=== PATIENT | female | born 1995 | race Caucasian/White ===

== ENCOUNTER 2017-07-16 11:45 | Emergency (ER) ==
[2017-07-16 11:52] VITALS: BP 131/85; TEMP 98.6; BMI 37.9
--- NOTE | 2017-07-16 12:38 | ED.PDOC ---
General ED Provider: Dr. STARLA SOLIS Chief Complaint: Syncope Stated Complaint: Passed out this morning. Was doing dishes in the kitchen and then she found her self on the floor when she suddenly awakened. States her brother was present and she recognized and spoke to him Time Seen by Physician: 12:40 Mode of Arrival: Walk-In Information Source: Patient Nursing and Triage Documentation Reviewed and Agree: Yes Reviewed sepsis parameters & appropriate labs ordered?: Yes System Inflammatory Response Syndrome: Not Applicable Sepsis Protocol: For patient's 13 years and over: Temp is 96.8 and below OR 101 and greater Pulse >90 BPM Resp >20/minute Acutely Altered Mental Status Are patient's symptoms suggestive of a new infection, such as: -Pneumonia -Skin, Soft Tissue -Endocarditis -UTI -Bone, Joint Infection -Implantable Device -Acute Abdominal Infection -Wound Infection -Meningitis -Blood Stream Catheter Infection -Unknown System Inflammatory Response Syndrome: Not Applicable Neurological Complaint Exam - Syncope/Near Syncope Complaint/Exam Onset/Duration: This AM Symptoms Are: Resolved Episodes Lasting: Minutes (Unsure of exact time) Episodes Witnessed: No Loss of Consciousness: Yes (suspected. NO Sensation of dizziness of impending syncope) Associated Head Trauma: No Activity at Onset: With exertion Aggravating: None Alleviating: Reports: Spontaneous resolution Associated Signs and Symptoms: Reports: Lightheadedness. Denies: Pain, Vomiting , Diarrhea, Short of air, Chest pain, Palpitations, Diaphoresis, Dizziness, Weakness, AMS, Numbness, Headache, Seizure, Remote head trauma, Recent head trauma Related History: Similar episode (Remote past) Cardiac Risk Factors: Reports: None GI Bleed Risk Factors: Reports: None Dysrhythmia Risk Factors: Reports: None Related Surgical History: Reports: None JVD Present: No Carotid Bruit Present: No Rectal Heme Positive: No Nystagmus Present: No Gag Reflex Present: Yes Meningeal Signs Positive: No Focal Weakness: Present: None Focal Sensory Loss: Present: None Gait: Normal [id number]: Normal Findings Romberg Test Positive: No Babinski Sign: Negative Right, Negative Left Heel to Toe Normal: Yes Derrick-Hallpike Test Positive: No Differential Diagnoses: Dysrhythmia, Hypoglycemia, Vasovagal Episode, Other (R/ O ) Review of Systems - Review Of Systems Constitutional: Reports: No symptoms. Denies: Chills, Fever Eyes: Reports: No symptoms. Denies: Blindness, Blurred vision, Vision change Ears, Nose, Mouth, Throat: Reports: No symptoms Respiratory: Denies: Cough, Short of air Cardiac: Reports: Syncope GI: Denies: No symptoms, Abdomen distended, Abdominal pain : Denies: Burning, Dysuria Musculoskeletal: Denies: Back pain, Gout, Joint pain, Joint swelling, Muscle pain Skin: Reports: No symptoms Neurological: Reports: Anxiety, Depressed, Emotional problems Endocrine: Denies: Excessive sweating, Flushing, Intolerance to cold Hematologic/Lymphatic: Denies: Anemia, Blood clots, Easy bleeding, Swollen glands All Other Systems: Reviewed and Negative Past Medical History - Past Medical History Previously Healthy: No Endocrine: Reports: None Cardiovascular: Reports: None Respiratory: Reports: None Hematological: Reports: None Gastrointestinal: Reports: None Genitourinary: Reports: None Neuro/Psych: Reports: Migraine, Seizure, Anxiety, Depression, Bipolar Disorder Musculoskeletal: Reports: None Cancer: Reports: None Last Menstrual Period: jun 14, 2017 Other Pertinent Past Medical History: colonoscopy - Surgical History General Surgical History: Reports: Other (colonoscopy) - Family History Family History: Reports: Unknown - Social History Smoking Status: Never smoker Hx Substance Use: No Alcohol Screening: None Lives: With family Physical Exam - Physical Exam Appearance: Well-appearing, Obese Ill-appearing: None Pain Distress: None Eyes: LY, EOMI, Conjunctiva clear ENT: Ears normal, Nose normal, Oropharynx normal Neck: Supple Respiratory: Airway patent, Breath sounds clear, Breath sounds equal Cardiovascular: RRR, Pulses normal, No rub, No murmur GI/: Soft, Nontender, No masses, Bowel sounds normal, No Organomegaly Musculoskeletal: Normal strength, ROM intact, No edema, No calf tenderness Skin: Warm, Dry, Normal color Neurological: Sensation intact, Motor intact, Reflexes intact, Cranial nerves intact, Alert, Oriented Psychiatric: Affect appropriate, Mood appropriate, Anxious Re-Evaluation - Re-Evaluation Time of Re-Evaluation: 14:20 Status: Unchanged Vital Signs Stable: Yes Appearance: NAD Lungs: Clear Skin: Warm and Dry Neuro: Alert and Oriented X3 CV: RRR Critical Care Note - Critical Care Note Total Time (mins): 0 Course - Course Hematology/Chemistry: 07/16/17 13:35 07/16/17 13:35 Orders, Labs, Meds: Lab Review 07/16/17 07/16/17 07/16/17 12:00 12:00 13:35 WBC 11.52 H RBC 4.93 Hgb 13.4 Hct 40.6 MCV 82.4 MCH 27.2 MCHC 33.0 RDW Coeff of Martin 15.5 H Plt Count 386 Immature Gran % (Auto) 0.4 Neut % (Auto) 62.9 Lymph % (Auto) 23.2 [place] % (Auto) 8.2 Eos % (Auto) 4.3 Baso % (Auto) 1.0 Immature Gran # (Auto) 0.1 Neut # 7.2 H Lymph # 2.7 [place] # 0.9 Eos # 0.5 Baso # 0.1 Sodium Potassium Chloride Carbon Dioxide Anion Gap BUN Creatinine Estimated GFR (MDRD) BUN/Creatinine Ratio Glucose Calcium Total Bilirubin AST ALT Alkaline Phosphatase Total Protein Albumin Globulin Albumin/Globulin Ratio Urine Color Yellow Urine Clarity Clear Urine pH 7.0 Ur Specific [place] 1.020 Urine Protein Negative Urine Glucose (UA) Negative Urine Ketones Negative Urine Blood Negative Urine Nitrite Negative Urine Bilirubin Negative Urine Urobilinogen 0.2 Ur Leukocyte Esterase Negative Urine Test Negative 07/16/17 13:35 WBC RBC Hgb Hct MCV MCH MCHC RDW Coeff of [place] Plt Count Immature Gran % (Auto) Neut % (Auto) Lymph % (Auto) [place] % (Auto) Eos % (Auto) Baso % (Auto) Immature Gran # (Auto) Neut # Lymph # [place] # Eos # Baso # Sodium 137 Potassium 3.9 Chloride 104 Carbon Dioxide 26 Anion Gap 10.9 BUN 12 Creatinine 0.74 Estimated GFR (MDRD) 98.00 BUN/Creatinine Ratio 16.21 Glucose 85 Calcium 9.7 Total Bilirubin 0.3 AST 17 ALT 23 Alkaline Phosphatase 63 Total Protein 7.2 Albumin 3.7 Globulin 3.5 Albumin/Globulin Ratio 1.06 Urine Color Urine Clarity Urine pH Ur Specific [place] Urine Protein Urine Glucose (UA) Urine Ketones Urine Blood Urine Nitrite Urine Bilirubin Urine Urobilinogen Ur Leukocyte Esterase Urine Test Orders Category Date Time Status EKG-(ED ONLY) Stat CARDIO 07/16/17 12:55 Completed CBC W/ AUTO DIFF Stat LAB 07/16/17 13:35 Completed CMP [COMPREHENSIVE METABOLIC PANEL] Stat LAB 07/16/17 13:35 Completed URINALYSIS C & S IF INDICATED Stat LAB 07/16/17 12:00 Completed URINE Stat LAB 07/16/17 12:[address] HEAD W/O CONTRAST Stat RADS 07/16/17 12:55 Completed Vital Signs: Temp Pulse Resp BP Pulse Ox 07/16/17 11:45 98.6 F 102 H 20 131/85 98 Departure - Departure Time of Disposition: 14:30 Disposition: HOME SELF-CARE Discharge Problem: Vaso vagal episode Instructions: Syncope (ED) Condition: Good Pt referred to PMD for follow-up: Yes (7-10 days) Allergies/Adverse Reactions: Allergies amitriptyline [From Elavil] Adverse Reaction (Verified 07/16/17 11:57) Bleach (Sodium Hypochlorite) Adverse Reaction (Verified 07/16/17 11:57) caffeine [From Excedrin Menstrual Complete] Adverse Reaction (Verified 07/16/17 11:57) escitalopram oxalate [From Lexapro] Adverse Reaction (Verified 07/16/17 11:57) nortriptyline Adverse Reaction (Verified 07/16/17 11:57) peppermint Adverse Reaction (Verified 07/16/17 11:57) phenylephrine [From Excedrin Sinus Headache] Adverse Reaction (Verified 11:57) sertraline HCl [From Zoloft] Adverse Reaction (Verified 07/16/17 11:57) ziprasidone [From Geodon] Adverse Reaction (Verified 07/16/17 11:59) Home Medications: Ambulatory Orders Cholecalciferol (Vitamin D3) [Vitamin D3] 50,000 unit PO WEEKLY 05/28/17 Cyanocobalamin (Vitamin B-12) [Vitamin B12] 2,500 mcg PO DAILY 05/28/17 Lamotrigine 50 mg PO BID #3 05/28/17
--- NOTE | 2017-07-16 13:35 | CT ---
EXAM: CT BRAIN HISTORY: Syncope TECHNIQUE: CT brain without intravenous contrast. 5-mm axial sections with Reformations. COMPARISON: FINDINGS: Brain is unremarkable without distinct evidence of hemorrhage or large vessel distribution recent is chemic infarction. There is no suggestion of acute hydrocephalus or subdural fluid collection. No m ass or mass effect. Cranium is within normal limits. Mastoid processes are aerated. The visualized paranasal sinuses a re clear. IMPRESSION: No acute intracranial process.
== END 2017-07-16 14:35 | disposition home or self-care (01) ==
LOC: ED 11:45
DX: R55 Syncope and collapse (principal); R42 Dizziness and giddiness
CPT/HCPCS: 36415; 80053; 81001; 81025; 85025; 93005; 93010; 99284

== ENCOUNTER 2017-12-18 21:45 | Emergency (ER) | payer MEDICAID, OTHER ==
[2017-12-18 22:01] VITALS: BP 129/85; TEMP 99.8; BMI 39.2
[2017-12-18] MEDS ORDERED: ANUCORT-HC RC STA (23:02)
--- NOTE | 2017-12-18 23:08 | ED.PDOC ---
General ED Provider: Dr. FERNANDA KHAN Chief Complaint: Rectal Pain Stated Complaint: Patient is a 22 year old female who states that she has been having blood in stool for 1 week, last episode 2 hours ago with more bleeding than usual. She noticed blood when she wiped. She had a colonoscopy at age 17 where she was told she had some hemorrhoids. Also complains of burning with urination, with some stinging and burning at present,. Denies any Anal intercourse Time Seen by Physician: 22:00 Mode of Arrival: Walk-In Information Source: Patient Exam Limitations: No limitations Primary Care Provider: GEORGE LINTON Nursing and Triage Documentation Reviewed and Agree: Yes Reviewed sepsis parameters & appropriate labs ordered?: Yes System Inflammatory Response Syndrome: Not Applicable Sepsis Protocol: For patient's 13 years and over: Temp is 96.8 and below OR 101 and greater Pulse >90 BPM Resp >20/minute Acutely Altered Mental Status Are patient's symptoms suggestive of a new infection, such as: -Pneumonia -Skin, Soft Tissue -Endocarditis -UTI -Bone, Joint Infection -Implantable Device -Acute Abdominal Infection -Wound Infection -Meningitis -Blood Stream Catheter Infection -Unknown GI Complaint Exam - GI Bleed Complaint/Exam Patient Complains of: Reports: Rectal bleeding Onset/Duration: 1 week Symptoms Are: Still present Frequency: daily Severity: Reports: Blood-streaked stool Location of Pain: Reports: Discrete Character: Reports: Sharp Aggravating: Reports: Bowel movement Alleviating: Reports: None Associated Signs and Symptoms: Reports: Rectal pain GI Bleed Risk Factors: Reports: Hemorrhoid, Rectal Fissure Recent Colonoscopy: No (5 years ago) Recent EGD: No Related Surgical History: Reports: None Abdominal Findings: Present: None Rectal Exam: Present: Heme positive, Tenderness. Absent: Internal hemorrhoids, External hemorrhoids, Melena, Mass Differential Diagnoses: Gastritis, Hemorrhoids Review of Systems - Review Of Systems Constitutional: Reports: No symptoms Eyes: Reports: No symptoms Ears, Nose, Mouth, Throat: Reports: No symptoms Respiratory: Reports: No symptoms Cardiac: Reports: No symptoms GI: Reports: Blood streaked bowels, Other (Anal pain ) : Reports: No symptoms Musculoskeletal: Reports: No symptoms Skin: Reports: No symptoms Neurological: Reports: No symptoms Endocrine: Reports: No symptoms Hematologic/Lymphatic: Reports: No symptoms All Other Systems: Reviewed and Negative Past Medical History - Past Medical History Previously Healthy: No Endocrine: Reports: None Cardiovascular: Reports: None Respiratory: Reports: None Hematological: Reports: None Gastrointestinal: Reports: None Genitourinary: Reports: None Neuro/Psych: Reports: Migraine, Seizure, Anxiety, Depression, Bipolar Disorder Musculoskeletal: Reports: None Cancer: Reports: None Last Menstrual Period: NOVEMBER [id number] Other Pertinent Past Medical History: colonoscopy - Surgical History General Surgical History: Reports: Other (colonoscopy) - Family History Family History: Reports: Unknown - Social History Smoking Status: Never smoker Hx Substance Use: No Alcohol Screening: Occasionally - Immunizations Tetanus Shot up to Date: Yes Physical Exam - Physical Exam Appearance: Ill-appearing, Obese Ill-appearing: Mild Pain Distress: Moderate Neck: Supple Respiratory: Airway patent, Breath sounds clear, Breath sounds equal, Respirations nonlabored Cardiovascular: RRR, Pulses normal, No rub, No murmur GI/: Soft, Nontender, No masses, Bowel sounds normal, No Organomegaly Musculoskeletal: Normal strength, ROM intact, No edema, No calf tenderness Skin: Warm, Dry, Normal color Neurological: Sensation intact, Alert Psychiatric: Anxious Critical Care Note - Critical Care Note Total Time (mins): 0 Course - Course Orders, Labs, Meds: Lab Review 12/18/17 12/18/17 12/18/17 23:00 23:17 23:17 Urine Color Yellow Urine Clarity Clear Urine pH 6.0 Ur Specific [place] >=1.030 Urine Protein Negative Urine Glucose (UA) Negative Urine Ketones Negative Urine Blood Negative Urine Nitrite Negative Urine Bilirubin Negative Urine Urobilinogen 0.2 Ur Leukocyte Esterase Negative Urine Test Negative Stl Occult Blood (IFOB) Positive Stool Occult Blood #2 No specimen received Stool Occult Blood #3 No specimen received Orders Category Date Time Status OCCULT BLOOD, STOOL Stat LAB 12/18/17 23:00 Completed URINALYSIS C & S IF INDICATED Stat LAB 12/18/17 23:17 Completed URINE Stat LAB 12/18/17 23:17 Completed Hydrocortisone Acetate [Anucort-Hc] MEDS 12/18/17 23:02 Discontinued 1 supp RC ONCE STA Medications Discontinued Medications Generic Name Dose Route Start Last Admin Trade Name Freq PRN Reason Stop Dose Admin Hydrocortisone Acetate 1 supp 12/18/17 23:02 12/18/17 23:10 Anucort-Hc RC 12/18/17 23:03 1 supp ONCE STA Administration Vital Signs: Temp Pulse Resp BP Pulse Ox 12/18/17 21:45 99.8 F H 93 H 18 129/85 98 Departure - Departure Time of Disposition: 23:40 Disposition: HOME SELF-CARE 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 Instructions: Proctitis (ED) Condition: Stable Pt referred to PMD for follow-up: Yes IPMP verified?: Yes Additional Instructions: Use suppositories as needed for pain Follow up with PCP in 3 days for GI Referral Prescriptions: Hydrocortisone Acetate [Anusol-Hc] 25 mg RC QID PRN #30 supp.rect PRN Reason: anal pain Allergies/Adverse Reactions: Allergies amitriptyline [From Elavil] Adverse Reaction (Verified 12/18/17 22:04) Bleach (Sodium Hypochlorite) Adverse Reaction (Verified 12/18/17 22:04) caffeine [From Excedrin Menstrual Complete] Adverse Reaction (Verified 12/18/17 22:04) escitalopram oxalate [From Lexapro] Adverse Reaction (Verified 12/18/17 22:04) nortriptyline Adverse Reaction (Verified 12/18/17 22:04) peppermint Adverse Reaction (Verified 12/18/17 22:04) phenylephrine [From Excedrin Sinus Headache] Adverse Reaction (Verified 22:04) sertraline HCl [From Zoloft] Adverse Reaction (Verified 12/18/17 22:04) ziprasidone [From Geodon] Adverse Reaction (Verified 12/18/17 22:04) Home Medications: Ambulatory Orders Albuterol Sulfate [Proair Hfa] 2 puff IH Q4H PRN 12/18/17 Diphenhydramine HCl [Benadryl] 50 mg PO Q6H PRN 12/18/17 Hydrocortisone Acetate [Anusol-Hc] 25 mg RC QID PRN #30 supp.rect 12/18/17 Ibuprofen 800 mg PO Q8H PRN 12/18/17 Lamotrigine [Lamictal] 200 mg PO BEDTIME 12/18/17 Quetiapine Fumarate 50 mg PO BEDTIME 12/18/17 Disposition Discussed With: Patient, Family
== END 2017-12-18 23:43 | disposition home or self-care (01) ==
LOC: ED 21:45
DX: K62.89 Other specified diseases of anus and rectum (principal); K92.1 Melena; R30.0 Dysuria
CPT/HCPCS: 81001; 81025; 82272; 99283